=== PATIENT | female | born 1970 | race Two or more races ===

== ENCOUNTER → 2024-10-21 | Outpatient (CLI) | payer OTHER, MEDICAID, SELFPAY ==
--- NOTE | 2024-10-21 | XR_ITS ---
Examination: Bilateral knees, standing AP single view Technique: Standing AP bilateral knees, standing single view Exam date and time: October 21, 2024 1219 hours INDICATIONS: Knee pain months. FINDINGS: Moderate osteopenia No significant joint narrowing No fracture or dislocation IMPRESSION: No significant joint narrowing
--- NOTE | 2024-10-21 | XR_ITS ---
Examination: Lumbar spine, 5 views Technique: Lumbar spine AP, lateral, coned lateral lower lumbar spine, bilateral obliques 5 views Exam date and time: October 21, 2024 1219 hours INDICATIONS: Low back pain radiating down the left leg beginning one year ago. FINDINGS: Adequate alignment lumbar vertebral bodies No lumbar fracture No significant lumbar disc narrowing No spondylolisthesis IMPRESSION: No lumbar fracture No significant lumbar disc narrowing
== END | disposition home or self-care (01) ==
PROVIDERS: PCP Family Medicine; Referring Provider Orthopaedic Surgery; Visit Provider Orthopaedic Surgery
DX: M54.50 Low back pain, unspecified (principal); M25.562 Pain in left knee; M25.561 Pain in right knee
CPT/HCPCS: 72110; 73565

== ENCOUNTER → 2024-12-02 | Outpatient (CLI) | payer OTHER, SELFPAY ==
[2024-12-01 15:01] LABS: HCG Qualitative,Urine Negative
--- NOTE | 2024-12-02 09:00 | XR_ITS ---
Examination: CTA abdomen, with intravenous contrast. CTA pelvis, with intravenous contrast. 2-D sagittal and coronal reconstructions. 3-D reconstructions. Date and time of exam: December 02, 2024 0929 hrs. Indications: Splenic artery aneurysm [address] study June 10, 2018 CTDI vol (mgy) 9.36 DLP (MGycm) 337 Technique: Multiple CTA images, 2.0 mm slice thickness, obtained, abdomen, pelvis, with the high-resolution 64 slice scanner. 100 cc Isovue-370 is administered intravenously. Sagittal and coronal 2-D reconstructions are obtained. 3-D reconstructions, angiographic images are obtained. 3-D postprocessing, including vascular maximum intensity projections. Low dose protocols were performed. One or more of the following dose reduction techniques were used; automated exposure control, adjustment of the mA and/or KV according to patient size, use of iterative reconstruction technique. Findings: No focal liver or splenic lesions Absent gallbladder No common bile duct stones Stable 10 mm splenic artery aneurysm. No hydronephrosis. No abdominal aortic aneurysm dilatation. No bowel obstruction. Normal appendix. No pelvic mass. Contracted urinary bladder. Mild osteopenia. Impression: Stable 10 mm splenic artery aneurysm
== END | disposition home or self-care (01) ==
PROVIDERS: PCP Student in an Organized Health Care Education/Training Program; Referring Provider Student in an Organized Health Care Education/Training Program; Visit Provider Surgery Vascular Surgery
DX: I72.8 Aneurysm of other specified arteries (principal); Z32.00 Encounter for pregnancy test, result unknown
CPT/HCPCS: 74174; 81025; A4649; Q9967

== ENCOUNTER → 2024-12-27 | Outpatient (CLI) | payer OTHER, SELFPAY ==
[2024-12-27 13:24] LABS: Blood Urea Nitrogen 6 mg/dL (9-23)
[2024-12-27 14:45] LABS: Creatinine,Random Urine 20 mg/dL (30-125)
== END | disposition home or self-care (01) ==
LOC: COPL 12:31
PROVIDERS: PCP Family Medicine; Referring Provider Student in an Organized Health Care Education/Training Program; Visit Provider Student in an Organized Health Care Education/Training Program
DX: I70.213 Atherosclerosis of native arteries of extremities with intermittent claudication, bilateral legs (principal)
CPT/HCPCS: 36415; 82570; 84520

== ENCOUNTER → 2024-12-31 | Outpatient (CLI) | payer OTHER, SELFPAY ==
[2024-12-30 14:14] LABS: HCG Qualitative,Urine Negative
--- NOTE | 2024-12-31 11:30 | XR_ITS ---
Examination: CTA abdominal aorta iliofemoral runoff. 2-D sagittal coronal reconstructions. 3-D reconstructions, vascular December 31, 2024 1149 hrs. Indications: History splenic artery aneurysm 2023, left lower leg swelling and pain onset several days ago Technique: Multiple CTA images of the abdominal aorta iliofemoral runoff arterial vessels, 2.0 mm slice thickness, post intravenous administration 130 cc Isovue-370 2-D sagittal coronal reconstructions. 3-D reconstructions, vascular 3-D postprocessing, including vascular maximum intensity projection images, 3-D volume rendering Low dose protocols were performed. One or more of the following dose reduction techniques were used; automated exposure control, adjustment of the mA and/or KV according to patient size, use of iterative reconstruction technique. Findings: No focal liver or splenic lesions Absent gallbladder Common bile duct 12 mm no stones 10 mm splenic artery aneurysm No hydronephrosis No bowel obstruction No pericecal inflammatory change No diverticulitis Small right ovarian follicular cysts Urinary bladder intact Abdominal aorta does not demonstrate aneurysmal dilatation Common iliac and external iliac common femoral arteries are intact No significant stenoses right superficial femoral artery right popliteal artery or right trifurcation arteries Intact left superficial femoral artery left popliteal artery Left trifurcation arteries fill to the ankle. Impression: 10 mm splenic artery aneurysm No significant obstructive arterial disease
== END | disposition home or self-care (01) ==
PROVIDERS: PCP Family Medicine; Referring Provider Student in an Organized Health Care Education/Training Program; Visit Provider Student in an Organized Health Care Education/Training Program
DX: I72.8 Aneurysm of other specified arteries (principal); Z32.00 Encounter for pregnancy test, result unknown
CPT/HCPCS: 75635; 81025; A4649; Q9967

== ENCOUNTER → 2025-02-22 | Outpatient (CLI) | payer OTHER, SELFPAY ==
--- NOTE | 2025-02-22 14:32 | XR_ITS ---
EXAMINATION: Cervical spine, 5 views Technique: Cervical spine AP, AP odontoid, lateral, bilateral obliques, 5 views Exam date and time: February 22, 2025 1434 hours INDICATIONS: Neck pain beginning one month ago. FINDINGS: Adequate alignment cervical vertebral bodies Moderate to advanced degenerative disc disease C5-C6, C6-C7 with posterior osteophyte formation and mild bilateral neural foraminal stenosis C5-C6 Moderate bilateral neural foraminal stenosis C6-C7 Intact odontoid No cervical fracture IMPRESSION: Moderate to advanced degenerative disc disease C5-C6, C6-C7 C5-C6 mild bilateral neural foraminal stenosis, C6-C7 moderate bilateral neural foraminal stenosis
== END | disposition home or self-care (01) ==
PROVIDERS: PCP Orthopaedic Surgery; Referring Provider Orthopaedic Surgery; Visit Provider Orthopaedic Surgery
DX: M50.322 Other cervical disc degeneration at C5-C6 level (principal); M48.02 Spinal stenosis, cervical region
CPT/HCPCS: 72050

== ENCOUNTER → 2025-02-25 | Outpatient (CLI) | payer OTHER, SELFPAY ==
[2025-02-25 12:18] LABS: Basophils % (Auto) 1 % (0-2.5); Eosinophils # (Auto) 0.1 Thou/mm3 (0.0-0.5); Eosinophils % (Auto) 3 % (0-10); Hematocrit 33.6 % (36.0-46.0); Hemoglobin 11.8 g/dL (12.0-16.0); Immature Granulocytes % (Auto) 0 % (0-0); Lymphocytes # (Auto) 1.9 Thou/mm3 (1.0-4.8); Lymphocytes % (Auto) 49 % (10-50); Mean Corpuscular HGB Conc 35.1 g/dl (31.0-37.0); Mean Corpuscular Hemoglobin 31.3 pg (25.0-35.0); Mean Corpuscular Volume 89 fL (80-100); Monocytes # (Auto) 0.3 Thou/mm3 (0.0-0.8); Monocytes % (Auto) 7 % (0-12); Neutrophils # (Auto) 1.5 Thou/mm3 (1.8-7.7); Neutrophils % (Auto) 40 % (37-80); Nucleated Red Blood Cell % 0 /100 WBC (0); Platelet Count 161 Thou/mm3 (140-440); RDW Standard Deviation 43.4 fL (36.4-46.3); Red Blood Count 3.77 Miln/mm3 (4.00-5.20); White Blood Count 3.8 Thou/mm3 (3.6-11.0)
[2025-02-25 12:39] LABS: Alanine Aminotransferase 13 U/L (10-49); Albumin, Serum 4.2 gm/dL (3.5-5.0); Alkaline Phosphatase 67 U/L (46-116); Anion Gap 10 (7-16); Aspartate Amino Transferase 25 U/L (0-34); BUN/Creatinine Ratio 14 Ratio (12-20); Bilirubin,Total 0.6 mg/dL (0.3-1.2); Blood Urea Nitrogen 11 mg/dL (9-23); Calcium 8.7 mg/dL (8.3-10.6); Calcium (Corrected) 8.7 mg/dL (8.5-10.1); Chloride 107 mMol/L (98-107); Creatinine (Component) 0.8 mg/dL (0.6-1.3); Globulin 2.1 gm/dL (2.3-3.5); Glucose 76 mg/dL (74-106); Osmolality,Calculated 285 (275-295); Potassium 3.6 mMol/L (3.4-5.1); Sodium 144 mMol/L (136-145); Total Protein 6.3 gm/dL (5.7-8.2); eGFR > 60 See Note
== END | disposition home or self-care (01) ==
LOC: COPL 11:41
PROVIDERS: PCP Family Medicine; Referring Provider Orthopaedic Surgery; Visit Provider Orthopaedic Surgery
DX: Z01.89 Encounter for other specified special examinations (principal); Z79.1 Long term (current) use of non-steroidal anti-inflammatories (NSAID)
CPT/HCPCS: 36415; 80053; 85025